=== PATIENT | female | born 2000 | race Two or more races ===

== ENCOUNTER 2022-11-24 10:11 | Emergency (ER) | payer MEDICAID ==
[~2022-11-24] VITALS: Ht 160 cm; Wt 61.8 kg
[2022-11-24 11:21] VITALS: BP 105/65
[2022-11-24] MEDS ORDERED: SULFAMETHOX W/TRIMETH(800/160MG) DS TAB PO ONE (11:30)
[2022-11-24] MEDS ORDERED: CEPHALEXIN 250 MG CAP PO ONE (11:30)
[2022-11-24] MEDS ORDERED: LIDOCAINE 1% HCL (LOCAL ANESTH.) INJ 20ML MDV ID ONE (11:30)
[2022-11-24] MEDS ORDERED: CEPH-510 PO (11:43)
[2022-11-24] MEDS ORDERED: BACDST PO (11:43)
[2022-11-24] MEDS ORDERED: IBUPROFEN 600 MG TAB PO ONE (11:45)
== END 2022-11-24 11:51 | disposition home or self-care (01) ==
LOC: ER 10:11
DX: L02.212 Cutaneous abscess of back [any part, except buttock and flank] (principal)
CPT/HCPCS: 10060; 99284; C1887

== ENCOUNTER 2022-11-26 17:11 | Emergency (ER) | payer MEDICAID ==
[~2022-11-26] VITALS: Ht 160 cm; Wt 62.2 kg
[~2022-11-26 17:11] MED LIST: BACDST PO; CEPH-510 PO
[2022-11-26 18:01] VITALS: BP 125/85
== END 2022-11-26 18:05 | disposition home or self-care (01) ==
LOC: ER 17:11
DX: L02.212 Cutaneous abscess of back [any part, except buttock and flank] (principal); Z88.2 Allergy status to sulfonamides

== ENCOUNTER 2025-02-02 18:16 | Emergency (ER) | payer SELFPAY ==
[~2025-02-02] VITALS: Ht 160 cm; Wt 58.7 kg
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
[2025-02-02] MEDS: HYDROcodone-ACET 10/325MG TAB PO ONE (19:20)
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
[2025-02-02] MEDS ORDERED: IBUP-1455 PO (20:57)
[2025-02-02] MEDS ORDERED: HYDR-4902 PO (20:57)
[2025-02-02 21:58] VITALS: BP 133/84; PULSE 61; RESP 17; TEMP 97.9; O2SAT 99
== END 2025-02-02 22:00 | disposition home or self-care (01) ==
LOC: ER 18:16
DX: S16.1XXA Strain of muscle, fascia and tendon at neck level, initial encounter (principal); S60.212A Contusion of left wrist, initial encounter; Z88.0 Allergy status to penicillin; V43.52XA Car driver injured in collision with other type car in traffic accident, initial encounter; Y93.89 Activity, other specified; Y92.410 Unspecified street and highway as the place of occurrence of the external cause; Y99.8 Other external cause status
CPT/HCPCS: 70450; 72125; 73110